=== PATIENT | male | born 1965 ===

== ENCOUNTER 2024-04-29 10:21 | Outpatient (CLI) | payer OTHER | END 2024-04-29 10:24 | disposition home or self-care (01) | LOC: SONOGRAMA 10:21 | PROVIDERS: ATTEND Pathology Anatomic Pathology & Clinical Pathology | DX: D34 Benign neoplasm of thyroid gland (principal); E07.89 Other specified disorders of thyroid; E04.1 Nontoxic single thyroid nodule; R22.1 Localized swelling, mass and lump, neck ==